=== PATIENT | female | born 1995 | race Caucasian/White ===

== ENCOUNTER 2016-09-27 21:29 | Emergency (ER) | payer MEDICAID ==
[~2016-09-27] VITALS: Ht 152.4 cm; Wt 59.0 kg
[~2016-09-27 21:29] MED LIST: AUGMENTIN 875 M1 TAB PO; COLACE100 MG PO; DERMOPLAST PAIN78 GM TOP; ELAVIL50 MG PO; LAN-O-SOOTHE7 GM TOP; NORCO 325-10 MG1 TAB PO; PRENATAL PLUS I1 TAB PO; TRI-LINYAH TAB1 EACH PO; ULTRAM50 MG PO
== END 2016-09-27 23:15 | disposition short-term general hospital (02) ==
LOC: ER 21:29
DX: J02.9 Acute pharyngitis, unspecified (principal)
CPT/HCPCS: J1885

== ENCOUNTER 2016-10-23 15:10 | Emergency (ER) | payer MEDICAID ==
[~2016-10-23] VITALS: Ht 149.9 cm; Wt 57.2 kg
== END 2016-10-23 16:12 | disposition short-term general hospital (02) ==
LOC: ER 15:10
DX: M79.642 Pain in left hand (principal); M79.641 Pain in right hand; R20.2 Paresthesia of skin; Z98.890 Other specified postprocedural states; Z90.49 Acquired absence of other specified parts of digestive tract; Z79.899 Other long term (current) drug therapy; Z88.6 Allergy status to analgesic agent; Z91.040 Latex allergy status